=== PATIENT | female | born 1930 | race Caucasian/White ===

== ENCOUNTER → 2018-02-07 | Outpatient (CLI) | payer MEDICARE ==
--- NOTE | 2018-02-07 15:47 | Diagnostic Imaging Report ---
EXAM: DXA BONE DENSITY INDICATIONS: OSTEOPORSIS COMPARISON: None. FINDINGS: Proximal left femur bone mineral density (BMD) (g/cm2):0.618 Femur T-score (standard deviation relative to young adult mean BMD): -2.7 Femur Z-score (standard deviation relative to age-matched control group):-0.3 Lumbar bone mineral density (BMD) (g/cm2):0.750 Lumbar T-score (standard deviation relative to young adult mean BMD): -2.7 Lumbar Z-score (standard deviation relative to age-matched control group):0.2 Change since prior exam (%):No prior exam obtained to compare with. CONCLUSION: 1. Bone mineral density in the left femur is classified as osteoporosis. Fracture risk is increased. 2. Bone mineral density in the spine is classified as osteoporosis. Fracture risk is increased. 3. The ten-year fracture risk is not reported as the T score for spine and hips is below -2.5. World Health Organization Classification: *The Z-score is provided for informational purposes. The T-score is preferable for clinical decisions. When comparing exams, a change of >4% is considered statistically significant. SUGGESTED RECOMMENDATIONS: Normal & Osteopenia:Consideration should be given to use of calcium supplementation, daily multiple vitamins and adequate exercise, as preventive measures against osteoporosis, if clinically indicated. Osteoporosis & Severe Osteoporosis:In addition to the above, consideration should be given to medical therapy against osteoporosis, if clinically indicated. James Lomas D.O. Dictated by: James Lomas D.O. on 02/07/2018 at 15:57 Electronically approved by: James Lomas D.O. on 02/07/2018 at 15:57
== END ==
LOC: DX 13:47
PROVIDERS: ATTEND Internal Medicine
DX: M81.0 Age-related osteoporosis without current pathological fracture (principal)
CPT/HCPCS: 77080